=== PATIENT | female | born 1970 | race Caucasian/White ===

== ENCOUNTER → 2019-03-02 14:24 | Outpatient (CLI) | payer BC, SELFPAY ==
[2019-03-02 07:25] VITALS: BMI 40.3
== END ==
PROVIDERS: Referring Provider Physician Assistant Surgical; Visit Provider Physician Assistant Surgical
DX: J02.9 Acute pharyngitis, unspecified (principal)
CPT/HCPCS: 87070

== ENCOUNTER 2023-08-22 20:21 | Emergency (ER) | payer OTHER, SELFPAY ==
[2023-08-22 20:22] VITALS: BP 170/107; PULSE 76; RESP 16; TEMP 36.3; O2SAT 96; BMI 45.9
--- NOTE | 2023-08-22 20:43 | EDS_ITS ---
HPI History of Present Illness Chief Complaint: Cold Sx Informant: patient Onset/Context/Timing Onset: Days (10 days) Narrative Narrative: Patient presents with 10-day history of cold symptoms. She states she started with a sore throat and it seemed to settle into her chest. She has had cough with sputum production. She reports chest pain with cough. She has had 2 episodes where she suddenly became breathless and felt like she could not breathe. Patient has been taking [id number] cold medicines including Sudafed and [place] plus. Her blood pressure is elevated today. She does not follow with a doctor regularly and does not know when she last had her blood pressure checked. [facility] Medical History Back pain Home Medications ibuprofen 200 mg capsule 200 mg PO Q6H 03/02/19 [History Last Taken Unknown] pseudoephedrine HCl 30 mg tablet (Sudafed) 30 mg PO ONCE 03/02/19 [History Last Taken Unknown] pseudoephedrine-ibuprofen 30 mg-200 mg capsule (Advil Cold and Sinus) cap PO 03/02/19 [History Last Taken Unknown] doxycycline monohydrate 100 mg capsule 100 mg PO BID #20 CAPSULES 08/22/23 [Rx Last Taken Unknown] Allergy/AdvReac Type Severity Reaction Status Date / Time No Known Allergies Allergy Verified 08/22/23 20:24 Family History Other Heart disease Hypertension Surgical History History of back surgery Social History Smoking Status: Current every day smoker tobacco type: cigarettes alcohol intake: current alcohol intake frequency: a few times a month Alcohol type: wine ROS ROS ED Constitutional Constitutional ED: Denies chills or fever(s) Eyes Eyes: Denies change in vision or discharge from eye(s) ENT ENT ED: Reports sore throat; Denies discharge from eye(s) or rhinorrhea Cardiovascular Cardiovascular: Reports other Details: Chest pain with cough. ; Denies palpitations Respiratory/Chest Respiratory/Chest: Reports cough and dyspnea Gastrointestinal Gastrointestinal: Denies abdominal pain, nausea or vomiting Genitourinary Genitourinary ED: Denies dysuria Musculoskeletal Musculoskeletal: Denies back pain or extremity pain Integumentary Denies Abrasions or rash Neurologic Neurologic: Denies headache(s) or weakness Allergic/Immunologic Allergic/Immunologic ED: Denies lip swelling or urticaria EXAM Physical Exam Const Vital Signs: 08/22/23 20:22 08/22/23 20:42 Temperature 97.4 F L Temperature Source Temporal Pulse Rate 76 Respiratory Rate 16 Respiratory Effort Normal Non-Labored Blood Pressure 170/107 H Blood Pressure Mean 128 Pulse Ox 96 Oxygen Delivery Method Room Air Positive well nourished and well developed General Appearance ED: well developed HEENT Reports moist mucous membranes Eyes EOMs intact bilaterally Chest Wall inspection of chest normal and palpation of chest normal Resp normal respiratory effort and clear to auscultation bilaterally Cardio regular rate and regular rhythm GI non-tender Palpation: soft Extremity normal to inspection Neuro oriented x3 and no sensory deficits noted Motor Exam: strength 5/5 throughout Psych mental status grossly normal Skin no rashes or lesions noted MDM MDM MDM Narrative Medical decision making narrative: IV line initiated. Labwork obtained to evaluate for leukocytosis, anemia, and electrolyte derangement. Chest x-ray obtained to evaluate for acute lung pathology, cardiac size, or mediastinal abnormality. Swab for COVID, influenza, and RSV will be obtained. EKG obtained to evaluate for cardiac arrhythmia/ischemia. History & Record Review Discussion w/independent historian: Patient Lab Data Attestation: I reviewed the patient's lab results. Labs: Laboratory Results - last 24 hr 08/22/23 20:50 WBC 8.4 RBC 5.33 Hgb 15.6 H Hct 47.5 H MCV 89.1 MCH 29.3 MCHC 32.8 RDW Std Deviation 44.1 H RDW Coeff of Aneesh 13.6 Plt Count 295 MPV 10.0 Immature Gran % (Auto) 0.400 Neut % (Auto) 47.1 Lymph % (Auto) 41.3 H Powell % (Auto) 7.5 Eos % (Auto) 3.0 Baso % (Auto) 0.7 Absolute Neuts (auto) 3.9 Absolute Lymphs (auto) 3.45 Nucleated RBC % 0 D-Dimer Quant (PE/DVT) 0.46 Sodium 138 Potassium 4.6 Chloride 105 Carbon Dioxide 26.0 Anion Gap 7 BUN 13 Creatinine 0.75 Estim Creat Clear Calc 111.16 Est GFR (MDRD) Af Amer 105 Est GFR (MDRD) Non-Af 87 BUN/Creatinine Ratio 17.4 Glucose 92 Calcium 9.3 Troponin I High Sens 4 Radiography Chest X-Ray - ED: 1 View, Read by ED Physician, Normal, Heart, Lungs and Mediastinum Diagnostic Testing: Clinical Impression(s) from Imaging Studies Chest X-Ray 08/22/23 20:56 IMPRESSION: Normal x-ray examination of the chest. Electronically Signed: Gilberto Anaya MD at 21:26 EDT Reading Location ID and State: [facility] / [place] Tel , Service support , EKG Initial EKG: Attestation: I personally reviewed and interpreted this EKG as follows: Interpretation: Sinus Rhythm (Sinus at 67 with no acute ischemia.) Treatment and Re-Evaluation :: CBC reveals a white count of 8.4 with 47% neutrophils. Hemoglobin slightly concentrated at 15.6. Chemistry studies unremarkable with normal renal function. D-dimer is normal at 0.46. Troponin is normal at 4. Swab for COVID, influenza, and RSV is negative. EKG is sinus rhythm with no evidence of acute i schemia. Portable chest x-ray per my interpretation feels no obvious infiltrate. Radiology interpretation reviewed and agrees. On repeat evaluation patient resting comfortably. Repeat blood pressure is 112/79. Given that she has had 10 days of symptoms and long history of smoking I will cover her with antibiotics for bronchitis. First dose given here and prescription for the same at home. Discharge Plan Triage Chief Complaint: Cold Sx ED Provider: Gita Aguirre Dx/Rx/DC Orders Clinical Impression: Bronchitis Instructions: ED Upper Resp Infec Abx Tx Prescriptions: New doxycycline monohydrate 100 mg capsule 100 mg PO BID Qty: 20 0RF No Action pseudoephedrine HCl [Sudafed] 30 mg tablet 30 mg PO ONCE Advil Cold and Sinus 30-200 mg capsule PO ibuprofen 200 mg capsule 200 mg PO Q6H Primary Care Provider: Care Physician,No Primary Referrals: Tyree Joseph MD [Med Staff - [employer]] - As Needed Care Physician,No Primary [Primary Care Provider] - Disposition Disposition: Home, Self Care
--- NOTE | 2023-08-22 20:56 | RAD_ITS ---
STUDY: X-RAY CHEST REASON FOR EXAM: Female, 52 years old. cough TECHNIQUE: Single frontal view of the chest. COMPARISON: None. FINDINGS: The lungs are clear and expanded. There is no demonstrated pleural abnormality. Normal size heart. Normal mediastinum and clay. Normal visualized pulmonary arteries. Normal visualized aortic arch and descending thoracic aorta. Normal visualized thoracic spine. Normal visualized ribs, clavicles, and shoulders. There is no demonstrated abnormality of the visualized soft tissue structures of the upper abdomen. RAD/Chest 1 View (Portable) IMPRESSION: Normal x-ray examination of the chest. Electronically Signed: Gilberto Anaya MD at 21:26 EDT ,
[2023-08-22 21:11] LABS: Absolute Lymphocyte Count 3.45 X10^3/uL (0.83-4.51); Absolute Neutrophil Count 3.9 X10^3/uL (2.0-7.7); Basophil# 0.06 X10^3/uL; Basophil% 0.7 % (0-1); Eosinophil# 0.25 X10^3/uL; Hematocrit 47.5 % (37-47); Hemoglobin 15.6 g/dL (12.0-15.0); Lymphocyte # 3.45 X10^3/ul (0.83-4.51); Lymphocyte % 41.3 % (19-41); Mean Corp Hgb Conc 32.8 g/dL (32-36); Mean Corpuscular Hgb 29.3 pg (27.0-32.0); Mean Corpuscular Volume 89.1 fL (81-99); Monocyte# 0.63 X10^3/uL; Monocyte% 7.5 % (0-10); NRBC Flagged by Analyzer 0 % (0-5); Neutrophil # 3.94 X10^3/uL (2.7-7.7); Neutrophil % 47.1 % (47-70); Platelet Count 295 K/mm3 (150-450); RBC Distribution Width CV 13.6 % (11.6-14.6); RBC Distribution Width SD 44.1 fl (35.1-43.9); Red Blood Count 5.33 M/mm3 (4.2-5.4); White Blood Count 8.4 K/mm3 (4.4-11.0)
[2023-08-22 21:22] LABS: D-Dimer Quantitative (DVT/PE) 0.46 FEU/ug/m (0.27-0.49)
[2023-08-22 21:35] LABS: Anion Gap 7 (5-15); BUN 13 mg/dL (7-18); BUN/Creat Ratio 17.4 RATIO (10-20); Calcium,Total 9.3 mg/dL (8.5-10.1); Chloride 105 mmol/L (98-107); Creatinine, Serum 0.75 mg/dL (0.55-1.02); EST Glomerular Filtration Rate 87 mL/min (>60); Est Glom Filt Rate - Afr Amer 105 mL/min (>60); Estimated Creatinine Clearance 111.16 ml/min; Glucose 92 mg/dL (74-106); Potassium 4.6 mmol/L (3.5-5.1); Sodium Level 138 mmol/L (136-145); Troponin-I HS 4 pg/mL (3.0-54.0)
[2023-08-22 22:00] VITALS: BP 112/79; PULSE 63; RESP 18; O2SAT 93
[2023-08-22] MEDS: Doxycycline 100 MG CAPSULE PO (22:33)
[2023-08-22 22:34] VITALS: BP 112/79; PULSE 63; RESP 18; TEMP 36.1; O2SAT 93
== END 2023-08-22 22:37 | disposition home or self-care (01) ==
PROVIDERS: Emergency Provider Emergency Medicine; Visit Provider Emergency Medicine
DX: J40 Bronchitis, not specified as acute or chronic (principal); F17.210 Nicotine dependence, cigarettes, uncomplicated
CPT/HCPCS: 71045; 80048; 84484; 85025; 85379; 87631; 93005; 99283; A4216

== ENCOUNTER 2023-08-23 18:44 | Inpatient (IN) | payer OTHER, SELFPAY ==
[2023-08-23 18:46] VITALS: BP 144/84; PULSE 86; RESP 18; TEMP 36.3; O2SAT 90; BMI 44.9
--- NOTE | 2023-08-23 19:25 | CT_ITS ---
STUDY: CT BRAIN WITH AND WITHOUT CONTRAST REASON FOR EXAM: Female, 52 years old. sudden headache RADIATION DOSAGE (If Supplied By Facility): CTDIvol = ( 27.93 ) mGy, DLP = ( 1160.27 ) mGycm TECHNIQUE: Transaxial CT imaging of the brain was performed pre and post contrast administration. The examination was performed with intravenous administration of IV 100mL Isovue-370. Individualized dose optimization techniques were used for this CT. COMPARISON: None. FINDINGS: Normal soft tissue structures. Normal calvarium. Normal size ventricles and extra-axial spaces for the patient''s age. Normal white matter tracts of the cerebral hemispheres. Normal basal ganglia and thalami. Normal brainstem. Normal cerebellum. There is no intracranial hemorrhage. There are no findings of an acute ischemic infarction. Normal visualized paranasal sinuses. CT/CTA Head W/WO Contrast IMPRESSION: Normal unenhanced and enhanced CT scan of the brain. Electronically Signed: Carl Bahena MD at 20:29 EDT ,
--- NOTE | 2023-08-23 19:26 | EDS_ITS ---
HPI History of Present Illness Chief Complaint: Headache Informant: patient and family Narrative Narrative: Patient was seen here yesterday, diagnosed with bronchitis has been going on for about 10 days, she is a smoker and was prescribed broad-spectrum antibiotics to cover for for atypical bacterial etiologies after having some occasional intermittent chest symptoms and a negative D-dimer ruling out PE and a negative chest x-ray. I reviewed that visit. She returns because of a headache, which she has not been having for this illness, but started suddenly and severely last night. She denies a thunderclap sensation or loss of consciousness, but she has had nausea and vomiting all day with it, she is been taking cvxg-hek-[id number] medications that have not helped, and she has been very tired which she was not before the headache started. 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 She had no recent head injury. With the headache, since its onset, she denies having any neurologic symptoms. Most of the headache is bifrontal and on top of her head, nonlateralizing. There is no family history or personal history that she is aware of of cerebral aneurysms. She denies any neck pain or stiffness, but moving her head makes her head hurt worse. [facility] Medical History Back pain Home Medications ibuprofen 200 mg capsule 200 mg PO Q6H 03/02/19 [History Last Taken Unknown] pseudoephedrine HCl 30 mg tablet (Sudafed) 30 mg PO ONCE 03/02/19 [History Last Taken Unknown] pseudoephedrine-ibuprofen 30 mg-200 mg capsule (Advil Cold and Sinus) cap PO 03/02/19 [History Last Taken Unknown] doxycycline monohydrate 100 mg capsule 100 mg PO BID #20 CAPSULES 08/22/23 [Rx Last Taken Unknown] metoclopramide HCl 10 mg tablet 10 mg PO Q6H PRN nausea and vomiting #20 tabs 08/24/23 [Rx Last Taken Unknown] Allergy/AdvReac Type Severity Reaction Status Date / Time No Known Allergies Allergy Verified 08/23/23 18:45 Family History Other Heart disease Hypertension Surgical History History of back surgery Social History Smoking Status: Current every day smoker tobacco type: cigarettes alcohol intake: current alcohol intake frequency: a few times a month Alcohol type: wine ROS ROS ED Constitutional Constitutional ED: Denies chills or fever(s) Eyes Eyes: Reports blurry vision and photophobia; Denies diplopia or loss of vision ENT ENT ED: Reports ear pain bilateral; Denies sore throat Cardiovascular Cardiovascular: Denies chest pain or palpitations Respiratory/Chest Respiratory/Chest: Reports cough; Denies dyspnea Gastrointestinal Gastrointestinal: Reports nausea and vomiting; Denies abdominal pain or diarrhea Genitourinary Genitourinary ED: Denies dysuria or urinary frequency Musculoskeletal Musculoskeletal: Denies back pain, myalgias or neck pain Integumentary Denies abscess or rash Neurologic Neurologic: Reports headache(s); Denies paresthesias or weakness EXAM Physical Exam Const Vital Signs: 08/23/23 18:46 08/23/23 20:45 08/23/23 22:22 Temperature 97.4 F L Temperature Source Temporal Pulse Rate 86 84 84 Respiratory Rate 18 14 18 Blood Pressure 144/84 H 146/69 H 144/76 H Blood Pressure Mean 104 94 98 Pulse Ox 90 97 88 Oxygen Delivery Method Room Air Nasal Cannula Oxygen Flow Rate (L/min) 2 Positive well nourished and well developed General Appearance ED: well developed and NAD HEENT Reports normocephalic, TM's clear and moist mucous membranes atraumatic Tympanic Membrane ED: Yes TM's clear Eyes PERRL, EOMs intact bilaterally and conjunctivae normal Eyes Narrative: photophobia Neck no lymphadenopathy, supple and no meningeal signs Neck Narrative: Can turn her head scym-llo-[id number] fully without any difficulty, does not want to take her chin to her chest due to making her headache worse. No meningismus. Resp normal respiratory effort and clear to auscultation bilaterally GI non-tender and non-distended Palpation: soft Extremity normal to inspection and full ROM Neuro oriented x3 and CN's II-XII intact bilaterally Neuro Narrative: Normal jbkkco-rt-jkry and oukh-hh-qzcz bilaterally Sensorium / Orientation: awake and alert Speech: speech normal Motor Exam: strength 5/5 throughout Psych mental status grossly normal Skin Lesions: no lesions Rashes: no rashes MDM MDM MDM Narrative Medical decision making narrative: With the nature of the onset of the patient's headache, my concern would be for subarachnoid hemorrhage due to cerebral aneurysm. She has a bit of a delayed presentation, so instead of just a plain CT, CT angiography of the head is indicated in order to rule out subarachnoid hemorrhage and to rule out aneurysms. This was obtained, I reviewed the images and the report which eventually I agree with, basically negative for anything acute. However, initially the radiologist placed a written interpretation for a CT of the brain with and without contrast and made no mention of the vasculature. For this reason I discussed with him, that if was done as angiography protocol in order specifically to evaluate the vasculature for cerebral aneurysm, so answered and then him as such, showing no acute aneurysmic arteries or hemorrhage. In the meantime, she was treated with Reglan and after the CT was verified negative, Toradol. The Reglan helped a little, the Toradol did not. She was later given more Reglan in addition to valproic acid given that I suspect this is more likely either vascular headache or other primary headache syndrome, I suspect related to her concurrent pulmonary/respiratory infection. She had some improvement. She appears to be less uncomfortable. We discussed options such as further treatment, going home with prescriptions, she prefers to go home. We discussed other possibilities such as meningitis, I think that is a lot less likely here, she agrees she does not want an LP which I offered. We discussed reasons to return but at this time I think supportive care advised, she was given a Zofran for some mild residual nausea and a prescription for some metoclopramide to use at home as needed until she can follow-up. Radiography Diagnostic Testing: Clinical Impression(s) from Imaging Studies Head CTA 08/23/23 19:25 IMPRESSION: Normal unenhanced and enhanced CT scan of the brain. Electronically Signed: Carl Bahena MD at 20:29 EDT , ADDENDUM: 08/23/232053 IMPRESSION: undefined ADDENDUM by Dr. Carl Bahena MD on 08/23/23 at 2047 ADDENDUM ADDENDUM: Upon additional review of the images and specifically the cerebral vasculature, there is no definite atherosclerotic disease observed nor is there evidence for focal aneurysm. Electronically Signed: Carl Bahena MD at 20:47 EDT Management Discussion w/another healthcare provider: Radiologist Discharge Plan Triage Chief Complaint: Headache Other Complaint: Nausea/Vomiting ED Provider: Kojo Latif Dx/Rx/DC Orders Clinical Impression: Acute headache, Bronchitis Instructions: ED Headache Unspecified Prescriptions: New metoclopramide HCl [metoclopramide HCl] 10 mg tablet 10 mg PO Q6H PRN (Reason: nausea and vomiting) Qty: 20 0RF No Action pseudoephedrine HCl [Sudafed] 30 mg tablet 30 mg PO ONCE Advil Cold and Sinus 30-200 mg capsule PO ibuprofen 200 mg capsule 200 mg PO Q6H doxycycline monohydrate 100 mg capsule 100 mg PO BID Qty: 20 0RF Primary Care Provider: Care Physician,No Primary Referrals: Doctor,Your [Non-Staff] - 1 Week if not improving Disposition Disposition: Home, Self Care
[2023-08-23] MEDS: 0.9% Normal Saline (1000mL) 1,000 ML 999 ML IV (19:33)
[2023-08-23] MEDS: Metoclopramide 10 MG/2 ML Vial 5 MG IV ×2 (19:34→23:18)
[2023-08-23 20:45] VITALS: BP 146/69; PULSE 84; RESP 14; O2SAT 97
[2023-08-23] MEDS: Ketorolac 30 MG/ML Syringe IV (21:47)
[2023-08-23 22:22] VITALS: BP 144/76; PULSE 84; RESP 18; O2SAT 88
--- NOTE | 2023-08-23 22:28 | ED.RN ---
Dr. Latif notiified pt was placed on 2L NC dt spo2 being 88%
[2023-08-23] MEDS: Valproate Sodium 1,000 MG in Dextrose 5%-Water (50mL Bag) 50 ML 50 MG IV (23:18)
[2023-08-24] VITALS (12 sets, daily range): BP systolic 119–136; BP diastolic 63–105; PULSE 65–77; RESP 15–18; TEMP 36.7–37; O2SAT 90–97; BMI 45.3
[2023-08-24] MEDS: Ondansetron 4 MG/2 ML Vial IV (00:31)
--- NOTE | 2023-08-24 02:15 | RAD_ITS ---
INDICATION: COUGH, HYPOXIA EXAMINATION/TECHNIQUE: X-RAY - XR Chest 2 Views COMPARISON: 08/22/2023. FINDINGS: LINES/DEVICES: None. LUNGS: Bilateral basilar linear atelectasis with patchy opacification in the right lung base. No consolidation, edema or effusion. No pneumothorax. MEDIASTINUM AND CARDIOVASCULAR STRUCTURES: Cardiac silhouette not enlarged. BONES AND SOFT TISSUES: Unremarkable. RAD/Chest PA and Lateral IMPRESSION: Bilateral basilar atelectasis with right lower lobe patchy opacities concerning for pneumonia. Radiographic follow-up recommended after treatment to ensure resolution. Electronically Signed: Tony Armenta MD at 4:18 EDT ,
[2023-08-24 04:42] LABS: Absolute Lymphocyte Count 1.53 X10^3/uL (0.83-4.51); Absolute Neutrophil Count 10.1 X10^3/uL (2.0-7.7); Basophil# 0.04 X10^3/uL; Basophil% 0.3 % (0-1); Hematocrit 43.5 % (37-47); Hemoglobin 13.8 g/dL (12.0-15.0); Lymphocyte # 1.53 X10^3/ul (0.83-4.51); Lymphocyte % 12.2 % (19-41); Mean Corp Hgb Conc 31.7 g/dL (32-36); Mean Corpuscular Hgb 28.5 pg (27.0-32.0); Mean Corpuscular Volume 89.9 fL (81-99); Mean Platelet Vol. 9.7 fl (6.2-12.0); Monocyte# 0.83 X10^3/uL; Monocyte% 6.6 % (0-10); NRBC Flagged by Analyzer 0 % (0-5); Neutrophil # 10.07 X10^3/uL (2.7-7.7); Neutrophil % 80.4 % (47-70); Platelet Count 263 K/mm3 (150-450); RBC Distribution Width CV 13.7 % (11.6-14.6); RBC Distribution Width SD 45.1 fl (35.1-43.9); Red Blood Count 4.84 M/mm3 (4.2-5.4); White Blood Count 12.5 K/mm3 (4.4-11.0)
[2023-08-24] MEDS: Ceftriaxone 1 GM/50 ML BAG IV (04:50)
--- NOTE | 2023-08-24 04:54 | HP.PCM.HOS_ITS ---
HPI - General General Date of Admission: 08/24/23 Date of Service: 08/24/23 Chief Complaint: Headache. HPI Narrative The patient is a 52 y/o F w/ PMHx: Morbid obesity, Chronic back pain, Tobacco use, recent 08/22/2019 for evaluation in the ED secondary to 10 days of cold type symptoms initially starting as a sore throat with onset of cough with mild sputum production with discomfort in the chest with coughing, pleuritic in nature with 2 episodes of breathlessness with activity with self administration of a significant amount of OTC medications including Sudafed and Pura-Mason plus with elevated blood pressure 08/22/2023 prompting ED visit at that time with unremarkable chest x-ray, CBC with WBC 8.4, unremarkable BMP, D-dimer normal 0.46, troponin normal 4, rapid COVID/influenza/RSV PCR negative, EKG with sinus rhythm with repeat blood pressure is normalized discharged on oral doxycycline secondary to concern of possible bacterial bronchitis who now represents to the [facility] ED on 08/23/2023 with onset of a headache which started suddenly and reportedly was severe at onset with associated nausea and emesis throughout the day with increasing fatigue and malaise with no vertigo as she notes she has had headaches in the past 6 associate with M?ni?re's disease but this is not consistent with her previous presentation with noted primary discomfort in the bifrontal region and on top of the head, nonlateralizing with no discomfort with movement of the neck prompting eventual ED evaluation. Patient does report that following ED interventions her headache has certainly improved. She does report also that she had been taking significant amounts of Sudafed for 2 weeks straight and suddenly stopped it and it was following she had onset of headaches. She notes that her was initially ill with upper respiratory/viral type symptoms but his seem to improve. Workup in the ED included T96.9, heart rate 63, BP 112/79, respiratory rate 93% on room air with most recent repeat vital signs heart rate 75, BP 120/75, respiratory rate 97 on room air, CBC with WC 12.5, hemoglobin 13.8, platelet 263 with left shift, BMP with chloride 110, glucose 109, calcium 8.4 otherwise not marked appearing, lactic acid 1.6,, chest x-ray with bilateral basilar atelectasis with right lower lobe patchy opacities concerning for pneumonia, CTA head with no acute intracranial findings, Blood culture pending per ED. In the ED patient minis tered 1 L normal saline, maintenance IV fluids, 1 g IV Rocephin, 500 mg IV azithromycin, Reglan 10 mg IV x 1, Zofran 4 mg IV x 1 and Depacon 1000 mg IV x 1. In the ED patient ambulated with noted hypoxia down to 86% at rest with improvement with 2 L nasal cannula and eventually transition back to room air however it was recurrent and with ambulation attempt she again desaturated to 87% with improvement with supplementation of 2 L nasal cannula. PFSH Medical History Chronic back pain Morbid obesity Tobacco use Home Medications ibuprofen 200 mg capsule 200 mg PO Q6H PRN pain 03/02/19 [History Last Taken Unknown] doxycycline monohydrate 100 mg capsule 100 mg PO BID #20 CAPSULES 08/22/23 [Rx Last Taken Unknown] metoclopramide HCl 10 mg tablet 10 mg PO Q6H PRN nausea and vomiting #20 tabs 08/24/23 [Rx Last Taken Unknown] Allergy/AdvReac Type Severity Reaction Status Date / Time No Known Allergies Allergy Verified 08/23/23 18:45 Family History (Updated 08/24/23 @ 05:[address] Barbi Sandy MD) Mother Heart disease Hypertension Father No problems noted. Surgical History History of back surgery Social History (Updated 08/24/23 @ 05:[address] Barbi Sandy MD) household members: spouse Smoking Status: Current every day smoker tobacco type: cigarettes Smoking packs per day: 1 Smoking cigarettes per day: 20.0 alcohol intake: current alcohol intake frequency: a few times a month Alcohol type: wine substance use type: does not use ROS ROS Narrative Admission Review of Systems: CONSTITUTIONAL: No weight loss, fever, chills, + weakness or fatigue. HEENT: + Headache. Eyes: No visual loss, blurred vision, double vision or yellow sclerae. Ears, Nose, Throat: No hearing loss, sneezing. Recent viral type symptoms with rhinorrhea, congestion. SKIN: No rash or itching, lesions, wounds. CARDIOVASCULAR: No chest pain, chest pressure or chest discomfort, palpitations, edema, orthopnea, syncopal events. RESPIRATORY: + Hypoxemia noted in the ED but no overt dyspnea, recent bronchitis with cough without marked sputum. No wheezing or hemoptysis. GASTROINTESTINAL: + Anorexia, nausea, emesis. No diarrhea, abdominal pain, melena, BRBPR. GENITOURINARY: No dysuria, frequency, urgency or retention. NEUROLOGICAL: + Headache. No dizziness, syncope, paralysis, ataxia, numbness or tingling in the extremities, focal weakness, change in bowel or bladder control, seizure. MUSCULOSKELETAL: + muscle, back pain, joint pain or stiffness. HEMATOLOGIC: No anemia, bleeding or bruising. LYMPHATICS: No enlarged nodes. No history of splenectomy. PSYCHIATRIC: No history of depression or anxiety. ENDOCRINOLOGIC: No reports of sweating, cold or heat intolerance. No polyuria or polydipsia. ALLERGIES: No history of asthma, hives, eczema or rhinitis. Vital Signs Vital Signs Vital Signs: 08/23/23 18:46 08/23/23 20:45 08/23/23 22:22 Temperature 97.4 F L Temperature Source Temporal Pulse Rate 86 84 84 Respiratory Rate 18 14 18 Blood Pressure 144/84 H 146/69 H 144/76 H Blood Pressure Mean 104 94 98 Pulse Ox 90 97 88 Oxygen Delivery Method Room Air Nasal Cannula Oxygen Flow Rate (L/min) 2 08/24/23 00:00 08/24/23 02:00 08/24/23 04:00 Temperature Temperature Source Pulse Rate 73 77 75 Respiratory Rate 18 16 16 Blood Pressure 136/76 H 119/63 128/75 H Blood Pressure Mean 96 81 92 Pulse Ox 93 97 Oxygen Delivery Method Room Air Room Air Oxygen Flow Rate (L/min) Weight Weight: 253 lb 6.4 oz Body Mass Index (BMI) 44.9 Physical Exam Narrative Physical Examination: General: Awake, alert, oriented x 3 and cooperative, seated upright in the ED bed, fatigued otherwise no acute distress. Skin: Normal color, normal turgor, no icterus, no cyanosis. HEENT: AT/NC, EOMI, PERRLA, mildly dry MM, no carotid bruits or JVD noted. Lungs: Diffusely diminished, decreased effort, despite right lower lobe findings no significant coarse sounds/rales or rhonchi, no wheezing. Heart: Regular rate and rhythm; no gallop, rub audible. Abdomen: Soft, obese, NTTP, ND, hyperactive BS, no appreciated HSM. Extremities: No cyanosis, clubbing, or edema. Neurological: Patient awake, alert, oriented as noted, cognitive function intact; pupils equally reactive to light and accommodation, cranial nerves grossly normal, moving all 4 extremities, no focal deficits, strength mildly to moderately globally decreased. Psychiatric: Affect appears flat, fatigued, no acute evidence of depressive or anxiety feelings. Results Lab / Micro Data 08/24/23 04:30 08/24/23 04:30 Labs: Laboratory Results - last 24 hr 08/24/23 04:30: WBC 12.5 H, RBC 4.84, Hgb 13.8, Hct 43.5, MCV 89.9, MCH 28.5, MCHC 31.7 L, RDW Std Deviation 45.1 H, RDW Coeff of Aneesh 13.7, Plt Count 263, MPV 9.7, Immature Gran % (Auto) 0.500, Neut % (Auto) 80.4 H, Lymph % (Auto) 12.2 L, [place] % (Auto) 6.6, Eos % (Auto) 0.0, Baso % (Auto) 0.3, Absolute Neuts (auto) 10.1 H, Absolute Lymphs (auto) 1.53, Nucleated RBC % 0 Imaging Radiology Impression Head CTA 08/23/23 19:25 IMPRESSION: Normal unenhanced and enhanced CT scan of the brain. Electronically Signed: Carl Bahena MD at 20:29 EDT , ADDENDUM: 08/23/232053 IMPRESSION: undefined Chest X-Ray 08/24/23 02:15 IMPRESSION: Bilateral basilar atelectasis with right lower lobe patchy opacities concerning for pneumonia. Radiographic follow-up recommended after treatment to ensure resolution. Electronically Signed: Tony Armenta MD at 4:18 EDT , Assessment & Plan Assessment/Plan (1) Hypoxemia: (2) Pneumonia: PLAN: Plan The patient is a 52 y/o F w/ PMHx: Morbid obesity, Chronic back pain, Tobacco use, recent 08/22/2019 for evaluation in the ED secondary to 10 days URI type sxs with diagnosis acute bronchitis discharged on doxycycline who now represents to the [facility] ED on 08/23/2023 with onset of a headache. #1. Acute Hypoxia secondary to Acute RLL Community Acquired Pneumonia following recent suspected Acute Viral Syndrome/Bronchitis with associated acute cephalgia primarily suspected secondary to recent sudden cessation OTC Sudafed agents: Will admit to medical surgical floor, maintain on oxygen with wean as tolerated to room air, maintain on ATC budesonide therapy, PRN albuterol, maintain on IV Rocephin and azithromycin, HOB, IS parameters w/ pending sputum cultures, full respiratory viral panel and urine antigens. Bld cx x 2 obtained in the ED. Discussed with patient side effects of prolonged Sudafed usage with sudden discontinuation. #2. Elevated BP without hypertensive diagnosis: Upon recent initial ED presentation patient with significantly elevated BP 170/107, improved since prior, possible related with notable OTC sudafed intake with bronchitis presentation, continue to monitor, as needed IV hydralazine. #3. Tobacco Abuse: Encouraged cessation, inpatient consultation per RT, NR if desired. #4. Morbid Obesity: Weight loss and lifestyle changes encouraged. #5. DVT prophylaxis: Lovenox. Charges/Coding Visit Charges Inpatient E&M: 12310 Init Hosp L2
[2023-08-24] MEDS: 0.9% Normal Saline (1000mL) 1,000 ML 150 ML IV (04:56)
[2023-08-24 04:57] LABS: Anion Gap 6 (5-15); BUN 15 mg/dL (7-18); BUN/Creat Ratio 22.1 RATIO (10-20); Calcium,Total 8.4 mg/dL (8.5-10.1); Chloride 110 mmol/L (98-107); Creatinine, Serum 0.68 mg/dL (0.55-1.02); EST Glomerular Filtration Rate 97 mL/min (>60); Est Glom Filt Rate - Afr Amer 118 mL/min (>60); Estimated Creatinine Clearance 120.96 ml/min; Glucose 109 mg/dL (74-106); Sodium Level 142 mmol/L (136-145)
[2023-08-24 05:05] LABS: Lactic Acid 1.6 mmol/L (0.4-1.9)
[2023-08-24] MEDS: Azithromycin 500 MG in Dextrose 5%-Water (250mL Bag) 250 ML 250 MG IV (05:28)
[2023-08-24] MEDS: proCHLORPERazine 10 MG/2 ML Vial 5 MG IV (06:02)
[2023-08-24] MEDS: Acetaminophen 325 MG Tablet 650 MG PO ×2 (06:50→11:36)
[2023-08-24] MEDS: Budesonide Respules 0.5 MG/2 ML AMPUL.NEB. INHALATION (11:23)
--- NOTE | 2023-08-24 12:50 | DCINST_ITS ---
Discharge Instructions Diet Discharge Diet: No restrictions Activity Discharge Activity: Return to Normal Activity Weight Bearing Status: Full weight bearing Follow Up Care Test Results: Test results from this visit will be discussed in further detail at your follow- up appointment, if applicable. Discharge Plan Admission Admit Date/Time: 08/24/23 04:57 Primary Reason for Your Visit: Hypoxia, pneumonia Attending Provider: Khoi Daniels Primary Care Provider: Care Physician,No Primary Consulting Providers: Barbi Sandy Instructions Additional Instructions / Restrictions: You will not need to resume your antibiotics at home until tomorrow morning, you will need a repeat chest x-ray performed in 2 weeks to make sure it normalizes I suggest that you make an appointment to establish a PCP at [facility] (Lucia Still or another nurse practitioner there) or at a doctor's office of your choice Discharge Orders/Prescriptions Prescriptions: New metoclopramide HCl [metoclopramide HCl] 10 mg tablet 10 mg PO Q6H PRN (Reason: nausea and vomiting) Qty: 20 0RF Continued ibuprofen 200 mg capsule 200 mg PO Q6H PRN (Reason: pain) doxycycline monohydrate 100 mg capsule 100 mg PO BID Qty: 20 0RF Referrals / Follow Up: Lucia Still BEHAVIORAL INTERVENTION SPECIALIST, BEHAVIORAL INTERVENTION SPECIALIST-C [Non-Staff -Ordering Privileges] - See Referral Note (In 2 weeks to establish PCP) Disposition Disposition (needs filled in before D/C Order can be placed): Home, Self Care
--- NOTE | 2023-08-24 12:59 | DS.PCM_ITS ---
Providers Date of Admission: 08/24/23 Primary Care Physician: No Primary Care Phys Reason For Visit: HYPOXIA, PNA Diagnosis Discharge Diagnosis (1) Hypoxemia: Status: Acute Code(s): R09.02 - Hypoxemia (2) Pneumonia: Status: Acute Code(s): J18.9 - Pneumonia, unspecified organism Plan 1. Community-acquired pneumonia #2 hypoxia on ambulation-resolved at the time of discharge #3 cephalgia Medications at Discharge Home Medications ibuprofen 200 mg capsule 200 mg PO Q6H PRN pain 03/02/19 doxycycline monohydrate 100 mg capsule 100 mg PO BID #20 CAPSULES 08/22/23 metoclopramide HCl 10 mg tablet 10 mg PO Q6H PRN nausea and vomiting #20 tabs 08/24/23 Hospital Course Operations None Procedures None Summary of Care Provided Minutes Spent on Discharge: 30 Hospital Course: This 52-year-old white female was seen in the emergency room at [facility] with a chief complaint of headache, she had been seen 2 days previous for a cough and was diagnosed as having bronchitis, she had been given doxycycline to take at home which she had been taking. Patient was given valproic acid in the emergency room for her headache, the plan was to discharge her from the emergency room but the patient ambulated on room air and was noted to have a pulse ox below 90. Patient's chest x-ray showed evidence of p neumonia, patient had minimal symptomology. Patient was admitted to [place] [id number], she was given IV antibiotics and placed on aerosol treatments and her pulse ox was monitored. Later that day in the afternoon, patient ambulated without difficulty and did not become hypoxic, she had no oxygen requirement. On 08/24/2023, patient was seen and examined: On examination she appeared in good health and spirits, she does not appear to be in any distress. Vital signs as documented. Skin warm and dry and without overt rashes. Neck without JVD, thyroid appears normal, trachea is midline, neck is supple. Lungs clear, normal air movement was noted. Heart exam notable for regular rhythm, normal sounds and absence of murmurs, rubs or gallops. Abdomen unremarkable and without evidence of organomegaly, masses, or abdominal aortic enlargement, bowel sounds are present in all 4 quadrants, no abdominal tenderness was noted. Extremities nonedematous, no cyanosis was noted, no clubbing was noted. Neuro: Cranial nerves II through XII are grossly intact, no focal motor deficits were noted, sensation to light touch and pinprick is intact, motor exam 5/5 throughout. Psych: Patient is alert and oriented x3, she does not appear anxious or depressed, she does not appear agitated. Patient appears stable for discharge home on 08/24/2023. Weight / BMI Weight Weight: 116 kg Body Mass Index (BMI) 45.3 ABG / Lab / Microbiology Data 08/24/23 04:30 08/24/23 04:30 Laboratory: Laboratory Results - last 24 hr 08/24/23 04:30: WBC 12.5 H, RBC 4.84, Hgb 13.8, Hct 43.5, MCV 89.9, MCH 28.5, MCHC 31.7 L, RDW Std Deviation 45.1 H, RDW Coeff of Aneesh 13.7, Plt Count 263, MPV 9.7, Immature Gran % (Auto) 0.500, Neut % (Auto) 80.4 H, Lymph % (Auto) 12.2 L, [place] % (Auto) 6.6, Eos % (Auto) 0.0, Baso % (Auto) 0.3, Absolute Neuts (auto) 10.1 H, Absolute Lymphs (auto) 1.53, Nucleated RBC % 0, Sodium 142, Potassium 4.0, Chloride 110 H, Carbon Dioxide 26.0, Anion Gap 6, BUN 15, Creatinine 0.68, Estim Creat Clear Calc 120.96, Est GFR (MDRD) Af Amer 118, Est GFR (MDRD) Non-Af 97, BUN/Creatinine Ratio 22.1 H, Glucose 109 H, Lactic Acid 1.6, Calcium 8.4 L Microbiology: Microbiology 08/24/23 06:25 Urine, Random Legionella Antigen - Final 08/24/23 06:25 Urine, Random Streptococcus pneumoniae Antigen (M - Final 08/24/23 05:48 Mucosa - Nasopharyngeal Respiratory Panel (PCR) - Final Radiography Diagnostic Testing: Radiology Impression Head CTA 08/23/23 19:25 IMPRESSION: Normal unenhanced and enhanced CT scan of the brain. Electronically Signed: Carl Bahena MD at 20:29 EDT , ADDENDUM: 08/23/232053 IMPRESSION: undefined Chest X-Ray 08/24/23 02:15 IMPRESSION: Bilateral basilar atelectasis with right lower lobe patchy opacities concerning for pneumonia. Radiographic follow-up recommended after treatment to ensure resolution. Electronically Signed: Tony Armenta MD at 4:18 EDT Reading Location ID and State: [facility] / [place] Tel , Service support , D/C Instructions Discharge Diet: No restrictions Weight Bearing Status: Full weight bearing Meaningful Use Info Meaningful Use Diagnoses (Choose all that apply): None applicable Discharge Plan Admission Admit Date/Time: 08/24/23 04:57 Primary Reason for Your Visit: Hypoxia, pneumonia Attending Provider: Khoi Daniels Primary Care Provider: Care Physician,No Primary Consulting Providers: Barbi Sandy Instructions Additional Instructions / Restrictions: You will not need to resume your antibiotics at home until tomorrow morning, you will need a repeat chest x-ray performed in 2 weeks to make sure it normalizes I suggest that you make an appointment to establish a PCP at [facility] (Lucia Still or another nurse practitioner there) or at a doctor's office of your choice Discharge Orders/Prescriptions Prescriptions: New metoclopramide HCl [metoclopramide HCl] 10 mg tablet 10 mg PO Q6H PRN (Reason: nausea and vomiting) Qty: 20 0RF Continued ibuprofen 200 mg capsule 200 mg PO Q6H PRN (Reason: pain) doxycycline monohydrate 100 mg capsule 100 mg PO BID Qty: 20 0RF Referrals / Follow Up: Lucia Still ELECTRIC MOTOR CONTROLS ASSEMBLER, ELECTRIC MOTOR CONTROLS ASSEMBLER-C [Non-Staff -Ordering Privileges] - See Referral Note (In 2 weeks to establish PCP) Disposition Disposition (needs filled in before D/C Order can be placed): Home, Self Care Charges/Coding Visit Charges Inpatient E&M: 57821 Disch Hosp
--- NOTE | 2023-08-24 13:19 | CASEMGMT ---
RN ROBERT Assessment: Face to Face with pt for initial transition planning/care coordination assessment. RN CM introduced self and role at [facility], pt voices understanding and consents to assessment. Pt is A&O x4, sitting up in the bed with spouse present, agreeable to spouse remaining present, and answers all questions appropriately at this time. Care providers, pharmacy, and demographics verified/updated. Admitting Dx: Hypoxia PCP:None--pt reports that someone is already assisting her with finding a PCP Specialists:None [facility] Insurance: [id number] Prescription Benefit: yes LNOK: Spouse Rhett Living Arrangements: Pt lives at home with spouse. Pt in independent with ADLs and IADLs. Transportation: Pt drives self and denies concerns with transportation. DME:None HHC/SNF: None Pt states no concerns with going home at time of dc. Pt states no further concerns/needs. CM to follow. Advised pt to ask CM if any further question/concerns/needs arise, voices understanding. Pt Goal: Home Plan: Home with self care Chanel Whitten MSN, RN, CCM
== END 2023-08-24 15:23 | disposition home or self-care (01) | DRG 194 ==
LOC: ED 08-24 04:47 → MS3 08-24 05:03
PROVIDERS: Emergency Medicine; Admitting Provider Family Medicine; Emergency Provider Emergency Medicine; Visit Provider Internal Medicine
DX: J18.9 Pneumonia, unspecified organism (principal); J98.11 Atelectasis; Z68.41 Body mass index [BMI] 40.0-44.9, adult; E66.01 Morbid (severe) obesity due to excess calories; F17.210 Nicotine dependence, cigarettes, uncomplicated; J40 Bronchitis, not specified as acute or chronic; M54.9 Dorsalgia, unspecified; R09.02 Hypoxemia; G89.29 Other chronic pain; R03.0 Elevated blood-pressure reading, without diagnosis of hypertension; R51.9 Headache, unspecified
CPT/HCPCS: 70496; 71046; 80048; 83605; 85025; 87040; 87449; 87633; 94640; 99285; J7030; Q9967; A4216; J2405